=== PATIENT | female | born 1970 | race Caucasian/White ===

== ENCOUNTER 2018-11-02 17:00 | Emergency (ER) | payer OTHER ==
--- NOTE | 2018-11-02 17:40 | EDM.PDOC ---
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 Stated Complaint: NOT FEELING WELL FROM PERIOD Time Seen by Provider: 11/02/18 17:28 Source of Information: Reports: Patient, Family, RN Notes Reviewed History Limitations: Reports: No Limitations - History of Present Illness INITIAL COMMENTS - FREE TEXT/NARRATIVE: 48-year-old female presents to emergency department today complaint of vaginal bleeding, she states she has been fairly regular on her periods up until last couple of months she's noticed slightly heavier bleeding with the slightly longer duration this particular time she's been bleeding for about 3 days and passing large amount across all approximately 1 pad per hour she states. 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: Neurological History: Reports: Concussion Endocrine/Metabolic History: Reports: Obesity/BMI 30+ - Past Surgical History Head Surgeries/Procedures: Reports: None HEENT Surgical History: Reports: None Female Surgical History: Reports: Section Neurological Surgical History: Reports: None Dermatological Surgical History: Reports: None Social & Family History - Tobacco Use Smoking Status *Q: Never Smoker Second Hand Smoke Exposure: No - Caffeine Use Caffeine Use: Reports: None - Recreational Drug Use Recreational Drug Use: No ED ROS GENERAL - Review of Systems Review Of Systems: See Below Constitutional: Reports: No Symptoms : Reports: Irregular Menses ED EXAM, RENAL/ - Physical Exam Exam: See Below Exam Limited By: No Limitations General Appearance: Alert, WD/WN, No Apparent Distress Respiratory/Chest: No Respiratory Distress GI/Abdominal: Soft, Non-Tender Course - Vital Signs Last Recorded V/S: Last Vital Signs Temp 97.3 F 11/02/18 17:22 Pulse 76 11/02/18 17:22 Resp 16 11/02/18 17:22 BP 128/69 11/02/18 17:22 Pulse Ox 96 11/02/18 17:22 - Orders/Labs/Meds Labs: Laboratory Tests 11/02/18 11/02/18 11/02/18 Range/Units 17:36 17:36 17:58 WBC 6.6 (4.5-11.0) K/uL RBC 4.18 (3.30-5.50) M/uL Hgb 12.6 (12.0-15.0) g/dL Hct 38.0 (36.0-48.0) % MCV 91 (80-98) fL MCH 30 (27-31) pg MCHC 33 (32-36) % Plt Count 228 (150-400) K/uL Neut % (Auto) 60 (36-66) % Lymph % (Auto) 30 (24-44) % [place] % (Auto) 7 H (2-6) % Eos % (Auto) 4 (2-4) % Baso % (Auto) 0 (0-1) % Sodium 141 (140-148) mmol/L Potassium 4.0 (3.6-5.2) mmol/L Chloride 106 (100-108) mmol/L Carbon Dioxide 27 (21-32) mmol/L Anion Gap 8.2 (5.0-14.0) mmol/L BUN 18 (7-18) mg/dL Creatinine 1.0 (0.6-1.0) mg/dL Est Cr Clr Drug Dosing 50.79 mL/min Estimated GFR (MDRD) 59 L (>60) Glucose 114 H (74-106) mg/dL Calcium 8.5 (8.5-10.1) mg/dL Urine Color Red Urine Appearance Turbid Urine pH 7.0 (4.5-8.0) Ur Specific [place]ong 1.015 (1.008-1.030) Urine Protein Trace (NEGATIVE) mg/dL Urine Glucose (UA) Normal (NEGATIVE) mg/dL Urine Ketones Negative (NEGATIVE) mg/dL Urine Occult Blood Large (NEGATIVE) Urine Nitrite Negative (NEGATIVE) Urine Bilirubin Negative (NEGATIVE) Urine Urobilinogen Normal (NORMAL) mg/dL Ur Leukocyte Esterase Small (NEGATIVE) Urine RBC Packed H (0-5) Urine WBC 0-5 (0-5) Ur Epithelial Cells Not seen Amorphous Sediment Not seen Urine Bacteria Not seen Urine Mucus Not seen Meds: Medications Discontinued Medications Generic Name Dose Route Start Last Admin Trade Name Freq PRN Reason Stop Dose Admin Medroxyprogesterone Acetate 10 mg 11/02/18 18:12 Provera PO 11/02/18 18:13 ONETIME ONE Departure - Departure Time of Disposition: 18:15 Disposition: Home, Self-Care 01 Condition: Fair Clinical Impression: Menorrhagia Qualifiers: Menorrahagia type: with irregular cycle Qualified Code(s): N92.1 - Excessive and frequent menstruation with irregular cycle - Discharge Information Referrals: PCP,None [Primary Care Provider] - Forms: ED Department Discharge Additional Instructions: Start the medroxyprogesterone tomorrow, please follow-up with your primary care upon returning home, call or return to the emergency department worsening of symptoms - Assessment/Plan Plan: Assessment Acuity = acute Site and laterality = menorrhagia Etiology = unknown etiology suspicious for started menopause Manifestations = none Location of injury = Home Lab values = hemoglobin 12 point for the remainder of CBC and BMP unremarkable urinalysis does have pack red blood cells Plan I did review lab work with her were start medroxyprogesterone 10 mg now and then a prescription was provided 10 mg daily for the next 10 days she'll follow up with her primary care upon returning home This note was dictated using [facility] voice recognition software please call with any questions on syntax or grammar.
== END 2018-11-02 18:44 | disposition home or self-care (01) ==
LOC: JP.ED 17:00
DX: N92.1 Excessive and frequent menstruation with irregular cycle (principal); E66.9 Obesity, unspecified; Z88.2 Allergy status to sulfonamides
CPT/HCPCS: 36415; 80048; 81001; 85025; 99284; A9270